=== PATIENT | male | born 1965 | race Caucasian/White ===

== ENCOUNTER 2021-03-28 09:08 | Emergency (ER) | payer OTHER, SELFPAY ==
[2021-03-28 09:17] VITALS: BP 128/79; PULSE 78; RESP 16; TEMP 37.2; O2SAT 100
--- NOTE | 2021-03-28 09:38 | ED.SKABFB ---
HPI - Skin/Abscess/Foreign Bdy General Chief complaint: Skin/Abscess/Foreign Body Stated complaint: Skin Sore Source: patient Mode of arrival: ambulatory Limitations: no limitations History of Present Illness HPI narrative: 55-year-old male presented for complaints of open wound to external skin of the nose at the philtrum. Onset 1 week. He completed a telephone triage and was prescribed Keflex and mupirocin ointment which he endorses compliance. He states he was told to have it evaluated and could not get into his primary care doctor. Patient states it is healing, compared with previous photo appears to be healing. Endorses a history of skin cancer x2, basal cell. 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 No other complaints. MD complaint: lesion Related Data Home Medications Medication Instructions Recorded Confirmed apremilast [Otezla] 30 mg PO BID 03/28/21 03/28/21 cephalexin 500 mg PO QID 03/28/21 03/28/21 mupirocin 2 applic TOPICAL DAILY 03/28/21 03/28/21 valsartan-hydrochlorothiazide 1 tablet PO DAILY 03/28/21 03/28/21 Allergies Allergy/AdvReac Type Severity Reaction Status Date / Time Sulfa (Sulfonamide Allergy Unknown Unknown Verified 03/28/21 09:48 Antibiotics) Review of Systems Review of Systems: CONSTITUTIONAL: Denies body aches, fever, chills, or sweats. EYES: Denies visual changes, redness, or discharge. ENT: Denies rhinorrhea, congestion, sore throat, or otalgia. CARDIOVASCULAR: Denies chest pain, palpitations, or edema. RESPIRATORY: Denies cough or dyspnea. GASTROINTESTINAL: Denies abdominal pain, nausea, vomiting, or diarrhea. GENITOURINARY: Denies dysuria or hematuria. SKIN: Endorses skin lesion to nose. Denies rash, itching, or pain to face. MUSCULOSKELETAL: Denies back pain, joint pain, or myalgia. NEUROLOGIC: Denies headache, numbness, tingling, or weakness. PSYCH: Denies depression or anxiety. PMFSH Comments At time of signature, I have reviewed and agree with nursing past medical, surgical, social and family history unless otherwise noted. Please see nursing chart for further information. There is no relevant family history pertinent to the presenting complaint Exam Narrative: GENERAL: Well-appearing, well-nourished, and in no acute distress. HEAD: Normocephalic, atraumatic. EYES: PERRLA, conjunctivae clear, and EOMI. ENT: Mucous membranes moist. Oropharynx without edema, erythema or lesions. NECK: Supple. No lymphadenopathy CHEST: Clear to auscultation. No respiratory distress. HEART: Regular rate and rhythm. SKIN: Warm, dry. Philtrum with approx 0.5cm diameter dried/crusted lesion no active drainage. erythema to tip of nose. No nasolabial, tongue, or lip swelling noted NEURO: Alert and oriented x3. PSYCH: Normal mood and affect Course Course Emergency Course: Patient is aware of diagnosis, understands and agrees to treatment plan. Anticipatory guidance given. Patient agrees to follow-up as directed and is aware of reasons to seek care at the emergency department. Portions of this record may have been created with voice recognition software Level of Care: Express Care Visit Vital Signs Vital signs: Vital Signs Temperature 99 F 03/28/21 09:17 Pulse Rate 78 03/28/21 09:17 Respiratory Rate 16 03/28/21 09:17 Blood Pressure 128/79 03/28/21 09:17 Pulse Oximetry 100 03/28/21 09:17 Temperature 99 F 03/28/21 09:17 Pulse Rate 78 03/28/21 09:17 Respiratory Rate 16 03/28/21 09:17 Blood Pressure 128/79 03/28/21 09:17 Pulse Oximetry 100 03/28/21 09:17 Reviewed MDM - Skin/Abscess/Foreign Bdy MDM Narrative Medical decision making narrative: Does not appear at this time to be erythema multiforme, bullous, SJS, TEN; no evidence at this time to suggest RMSF, endocarditis or Lyme disease; patient looks well, nontoxic and is tolerating oral intake; no neurologic signs or symptoms; no headache, photophobia or neck pain; afebrile; appropriate
== END 2021-03-28 10:02 | disposition home or self-care (01) ==
PROVIDERS: Emergency Provider Nurse Practitioner Family; PCP Internal Medicine
DX: S01.20XA Unspecified open wound of nose, initial encounter (principal); X58.XXXA Exposure to other specified factors, initial encounter; I10 Essential (primary) hypertension; L40.9 Psoriasis, unspecified; Z85.828 Personal history of other malignant neoplasm of skin
CPT/HCPCS: 99211; G0463